=== PATIENT | female | born 2000 | race Caucasian/White ===

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

== ENCOUNTER 2022-06-17 08:52 | Emergency (ER) | payer BC, SELFPAY ==
--- NOTE | 2022-06-17 08:43 | ECG_ITS ---
APPROVED REPORT Exam: Resting ECG HR:84 bpm ECG Measurements Heart Rate 84 AXES NV 151 P 52 QRSd 73 QRS 64 QT 345 T 17 QTc 386 Conclusion SINUS RHYTHM NONSPECIFIC T-WAVE ABNORMALITY BORDERLINE ECG UNCONFIRMED REPORT Electronically signed by : Jaylen Putnam MD 06/17/2022 21:18:48
[2022-06-17 08:52] VITALS: BP 135/92; PULSE 84; RESP 16; TEMP 36.8; O2SAT 100; BMI 23.3
[2022-06-17 08:54] VITALS: BMI 23.3
--- NOTE | 2022-06-17 08:54 | HMH.EDGENADL ---
Discharge Plan Disposition Patient Disposition: Home, Self-Care Condition: Good Chief Complaint: Upper Respiratory Infection Prescriptions Prescriptions: No Action norgestimate-ethinyl estradiol [Ehd-Qv-Dmpksl] 0.18/0.215/0.25 mg-25 mcg tablet 1 tab PO DAILY Qty: 28 12RF Referrals Follow up/Referrals: Vanna Hilton PA [Primary Care Provider] - See instructions Activity Restrictions/Add. Instructions Additional Instructions/Restrictions: Tessalon pearls as needed for cough. Qohr-iyf-sgpufyw ibuprofen as needed for pain. Additional instructions for UPPER RESPIRATORY INFECTION: See your physician if not improving in 3-4 days or if worsening. Rest and drink plenty of fluids. Return immediately if you have an uncontrollable fever, difficulty breathing or shortness of breath, persistent vomiting, or inability to swallow. Clinical Impressions Clinical Impression: Upper respiratory infection, viral Discharge ED Provider: Karthik Camacho General Adult HPI General Chief complaint: Upper Respiratory Infection Stated complaint: CONGESTION Time Seen by Provider: 06/17/22 08:56 History of Present Illness HPI narrative: 2-day history of cough with sternal chest pains. No fever. No rhinorrhea. No vomiting or diarrhea. She also has a left earache. Exposure to the flu 1 week ago. Related Data Previous Rx's Medication Instructions Recorded norgestimate 0.18 mg/0.215 mg/0.25 1 tab PO DAILY #28 tabs 01/19/22 mg-ethinyl estradiol 25 mcg tablet (Cdt-Nh-Nganxo) Allergies Allergy/AdvReac Type Severity Reaction Status Date / Time amoxicillin Allergy Verified 12/29/21 09:01 Penicillins Allergy Verified 12/29/21 09:01 [facility] Social History Smoking Status: Never smoker alcohol intake: never current occupational status: other Travel in the last 8 weeks: None ROS Obtained: Yes Systems reviewed as appropriate & no additional complaints except as documented Constitutional Constitutional: Denies fever(s) ENT Ears, Nose, Mouth, and Throat: Denies nasal congestion, Denies nasal discharge and Denies post nasal drip Cardiovascular Cardiovascular: Reports chest pain Respiratory Respiratory: Denies shortness of breath, Reports cough and Reports pain with cough Gastrointestinal Gastrointestingal: Denies abdominal pain, diarrhea or vomiting Physical Exam General General appearance: alert and in no apparent distress Comment: Pulse ox 100% on room air. HR 80s. Eye Eye exam: Absent conjunctival injection ENT ENT exam: Present normal oropharynx, mucous membranes moist and TM's normal bilaterally Neck Neck exam: Present normal inspection and trachea midline; Absent meningismus or lymphadenopathy Chest Chest inspection: Present normal inspection and symmetric chest wall rise Respiratory Respiratory exam: Present normal lung sounds bilaterally; Absent respiratory distress or wheezes Cardiovascular Cardiovascular exam: Present regular rate, normal rhythm and normal heart sounds Extremities Exam Extremities exam: Present normal inspection Neurological Exam Neurological exam: Present alert and oriented X3 Psychiatric Psychiatric exam: Present normal affect and normal mood Skin Skin exam: Present warm and dry Medical Decision Making Tommy Inquiry Pt receiving controlled substance: No Vital Signs: 06/17/22 08:52 Temperature 98.2 F Temperature Source Oral Pulse Rate [Right Radial] 84 Respiratory Rate 16 Blood Pressure [Right Arm] 135/92 H Blood Pressure Mean [Right Arm] 106 Blood Pressure Source [Right Arm] Automatic Cuff Blood Pressure Position [Right Arm] Sitting 02 Sat by Pulse Oximetry 100 Oxygen Delivery Method Room Air Lab Data Lab Results 06/17/22 09:05: SARS-CoV-2 (PCR) Not detected, Influenza A Untype (PCR) Not detected, Influenza Type B (PCR) Not detected Orders (Tests/Meds): ORDERS Category Date Time Status XR chest 2V Stat Exams 06/17/22 08:55 Compl
--- NOTE | 2022-06-17 08:55 | XR_ITS ---
PROCEDURE INFORMATION: Exam: XR Chest Exam date and time: 06/17/2022 8:53 AM Age: 21 years old Clinical indication: Cough; Additional info: Cough and congestion TECHNIQUE: Imaging protocol: Radiologic exam of the chest. Views: 2 views. COMPARISON: CR KUB KUB (SINGLE VIEW) 07/09/2016 3:52 PM FINDINGS: Lungs: Unremarkable. No consolidation. Pleural spaces: Unremarkable. No pleural effusion. No pneumothorax. Heart/Mediastinum: Unremarkable. No cardiomegaly. Bones/joints: Unremarkable. IMPRESSION: No acute findings.
--- NOTE | 2022-06-17 09:01 | PC.NURSE ---
PT GOING OVER FOR CXR
[2022-06-17 09:10] LABS: Coronavirus 19, PCR Not Detected (NotDetected); Influenza A, PCR Not Detected (NotDetected); Influenza B, PCR Not Detected (NotDetected)
--- NOTE | 2022-06-17 09:13 | PC.NURSE ---
SWAB SENT TO LAB
[2022-06-17 09:30] VITALS: BP 129/83; PULSE 78; RESP 16; O2SAT 100
[2022-06-17 09:54] VITALS: BP 129/83; PULSE 87; RESP 20; TEMP 36.8; O2SAT 100
== END 2022-06-17 09:55 | disposition home or self-care (01) ==
PROVIDERS: Emergency Provider Emergency Medicine; PCP Physician Assistant
DX: J06.9 Acute upper respiratory infection, unspecified (principal)
CPT/HCPCS: 71046; 93005; 99283; C9803; U0003; U0005

== ENCOUNTER 2023-05-21 18:45 | Emergency (ER) | payer BC, SELFPAY ==
[2023-05-21 19:00] VITALS: BP 148/78; PULSE 93; RESP 18; TEMP 36.9; O2SAT 99; BMI 29.9
--- NOTE | 2023-05-21 19:03 | EXP.UTC ---
Discharge Plan Disposition Patient Disposition: Home, Self-Care Condition: Good Prescriptions Prescriptions: New azithromycin [Zithromax] 250 mg tablet 250 mg PO UD DOSE PK Qty: 6 0RF Rx Instructions: Take two (2) tablets today, then one (1) tablet days #2 thru #5 prednisone [prednisone] 20 mg tablet 20 mg PO BID 3 Days Qty: 6 0RF hcuqundlypulszu-plwfklrte-FW [Bromfed DM] 2-30-10 mg/5 mL Syrup 5 ml PO Q6H PRN (Reason: Cough) Qty: 240 0RF No Action sertraline 50 mg tablet 50 mg PO Referrals Follow up/Referrals: Vanna Hilton PA [Primary Care Provider] - See instructions Activity Restrictions/Add. Instructions Additional Instructions/Restrictions: Drink plenty of fluids. Take tylenol or ibuprofen for pain or fever. Take the medications as directed. Follow up with your regular doctor. GO TO THE ER FOR ANY WORSENING SYMPTOMS Clinical Impressions Clinical Impression: Sinusitis, Acute viral syndrome Stand Alone Forms Stand Alone Forms: Work/School Release Instructions Patient Instructions: Sinusitis, DI for Sinusitis Discharge ED Provider: Silviano Rendon [facility] [place] HPI General Stated complaint: stomach ache, cough, vomiting, sneezy Time Seen by Provider: 05/21/23 19:02 History of Present Illness Provider Complaint: She states that for the past 1 day she has had sinus congestion, headache, chills, cough, and n/v. Related Data Home Medications Medication Instructions Recorded Confirmed sertraline 50 mg tablet 50 mg PO 07/20/22 07/20/22 Previous Rx's Medication Instructions Recorded azithromycin 250 mg tablet 250 mg PO UD DOSE PK #6 tabs 05/21/23 (Zithromax) svaahugjhbygrsa-irbhwnzvbjnbgnq-AD 5 ml PO Q6H PRN Cough #240 mL 05/21/23 2 mg-30 mg-10 mg/5 mL oral syrup (Bromfed DM) prednisone 20 mg tablet 20 mg PO BID 3 days #6 tabs 05/21/23 Allergies Allergy/AdvReac Type Severity Reaction Status Date / Time amoxicillin Allergy Verified 05/21/23 19:30 Penicillins Allergy Verified 05/21/23 19:30 [facility] Disclaimer: The information contained in this section may have been updated after the patient was seen, as this information can be updated by other users. Surgical History Hx of brain surgery Social History Smoking Status: Never smoker alcohol intake: current substance use type: denies use current occupational status: employed Travel in the last 8 weeks: None ROS Obtained: Yes All systems reviewed & no additional complaints except as documented Constitutional Constitutional: Reports poor appetite Eyes Eyes: Reports system reviewed and no additional complaints, except as documented ENT Ears, Nose, Mouth, and Throat: Reports as per HPI Cardiovascular Cardiovascular: Reports system reviewed and no additional complaints, except as documented and Denies chest pain Respiratory Respiratory: Denies shortness of breath, Denies chest congestion, Reports cough, Denies stridor and Denies wheezing Gastrointestinal Gastrointestingal: Reports system reviewed and no additional complaints, except as documented; Denies abdominal pain, diarrhea or vomiting Musculoskeletal Musculoskeletal: Reports system reviewed and no additional complaints, except as documented and Denies arthralgias Integumentary/Breasts Skin/Breast: Reports system reviewed and no additional complaints, except as documented and Denies rash Neurologic Neurologic: Denies paresthesias Allergic/Immunologic Allergic/Immunologic: Denies wheezing Physical Exam General General appearance: alert and in no apparent distress Eye Eye exam: Present normal appearance, PERRL and EOMI ENT ENT exam: Present mucous membranes moist and normal external ear exam Expanded ENT Exam External ear exam: Present normal external inspection TM/Canal exam: Bilateral TM: erythema and bulging Nose exam:
[2023-05-21 19:22] LABS: Microscopic, Urine URINE MICROSCOPIC (MICROSCOPIC)
[2023-05-21 19:38] LABS: Appearance,Urine CLEAR (Clear); Bilirubin,Urine Negative (Negative); Blood, Urine Negative (Negative); Color,Urine YELLOW (Yellow); Glucose,Urine (UA) Negative (Negative); Ketones,Urine Negative (Negative); Leukocyte Esterase,Urine 1+ (Negative); Nitrate,Urine Negative (Negative); Protein,Urine Negative (Negative); Specific Gravity, Urine >= 1.030 (1.005-1.030); Urobilinogen,Urine 0.2 EU/dl (0.2)
[2023-05-21 19:54] LABS: Bacteria,Urine Trace /lpf
[2023-05-21 20:00] VITALS: BP 0/0; PULSE 100; RESP 18; TEMP 36.7; O2SAT 98
== END 2023-05-21 20:00 | disposition home or self-care (01) ==
PROVIDERS: Emergency Provider Nurse Practitioner Family; PCP Physician Assistant
DX: J01.90 Acute sinusitis, unspecified (principal); B34.9 Viral infection, unspecified
CPT/HCPCS: 81001; 87086; 87635; 99212; 99214; G0463

== ENCOUNTER 2023-06-26 17:39 | Emergency (ER) | payer BC, SELFPAY ==
--- NOTE | 2023-06-26 18:26 | EXP.UTC ---
Discharge Plan Disposition Patient Disposition: Home, Self-Care Condition: Good Prescriptions Prescriptions: New prednisone [prednisone] 20 mg tablet 20 mg PO BID 3 Days Qty: 6 0RF [id number]-dkbwqcwwc-DB [Bromfed DM] 2-30-10 mg/5 mL Syrup 5 ml PO Q6H PRN (Reason: Cough) Qty: 240 0RF cefdinir 300 mg capsule 300 mg PO BID Qty: 20 0RF No Action sertraline 50 mg tablet 50 mg PO DAILY Referrals Follow up/Referrals: Vanna Hilton PA [Primary Care Provider] - See instructions Activity Restrictions/Add. Instructions Additional Instructions/Restrictions: Drink plenty of fluids. Take tylenol or ibuprofen for pain or fever. Take the medications as directed. Follow up with your regular doctor. GO TO THE ER FOR ANY WORSENING SYMPTOMS Clinical Impressions Clinical Impression: Sinusitis Stand Alone Forms Stand Alone Forms: Work/School Release Instructions Patient Instructions: Sinusitis, DI for Sinusitis Discharge ED Provider: Silviano Rendon [facility] General Stated complaint: congestion, runny nose, sore throat, cough Time Seen by Provider: 06/26/23 18:26 History of Present Illness Provider Complaint: She states that for the past 2 days she has had sinus congestion and a cough. Related Data Home Medications Medication Instructions Recorded Confirmed sertraline 50 mg tablet 50 mg PO DAILY 07/20/22 06/26/23 Previous Rx's Medication Instructions Recorded evegiruzvkdcsid-vojgesstdryuvxr-WW 5 ml PO Q6H PRN Cough #240 mL 06/26/23 2 mg-30 mg-10 mg/5 mL oral syrup (Bromfed DM) cefdinir 300 mg capsule 300 mg PO BID #20 caps 06/26/23 prednisone 20 mg tablet 20 mg PO BID 3 days #6 tabs 06/26/23 Allergies Allergy/AdvReac Type Severity Reaction Status Date / Time amoxicillin Allergy Verified 06/26/23 18:44 Penicillins Allergy Verified 06/26/23 18:44 [facility] Disclaimer: The information contained in this section may have been updated after the patient was seen, as this information can be updated by other users. Surgical History Hx of brain surgery Social History Smoking Status: Never smoker alcohol intake: current substance use type: denies use current occupational status: employed Travel in the last 8 weeks: None ROS Obtained: Yes All systems reviewed & no additional complaints except as documented Constitutional Constitutional: Reports chills and Reports fever(s) Eyes Eyes: Denies eye discharge ENT Ears, Nose, Mouth, and Throat: Reports as per HPI Cardiovascular Cardiovascular: Denies chest pain Respiratory Respiratory: Denies chest congestion and Reports cough Gastrointestinal Gastrointestingal: Reports nausea; Denies abdominal pain, constipation, cramping, diarrhea or vomiting Musculoskeletal Musculoskeletal: Denies arthralgias Integumentary/Breasts Skin/Breast: Denies rash Neurologic Neurologic: Denies paresthesias Physical Exam General General appearance: alert and in no apparent distress Eye Eye exam: Present normal appearance, PERRL and EOMI ENT ENT exam: Present mucous membranes moist and normal external ear exam Expanded ENT Exam External ear exam: Present normal external inspection TM/Canal exam: Bilateral TM: erythema and bulging Nose exam: Absent sinus tenderness Nasal speculum exam: Bilateral: normal Mouth exam: Present normal external inspection; Absent drooling Teeth exam: Present normal inspection Throat exam: Present tonsillar erythema and tonsillomegaly Neck Neck exam: Present normal inspection, full ROM and trachea midline; Absent tenderness, lymphadenopathy or thyromegaly Chest Chest inspection: Present normal inspection and symmetric chest wall rise; Absent tenderness or rash Respiratory Respiratory exam: Present normal lung sounds bilaterally; Absent respiratory distress, wheezes, stridor or accessory mu
[2023-06-26 18:30] VITALS: BP 131/88; PULSE 81; RESP 18; TEMP 36.5; O2SAT 100; BMI 31.6
[2023-06-26 18:43] LABS: UTC Strep Screen (Rapid) Negative (Negative)
[2023-06-26 19:09] VITALS: BP 131/88; PULSE 81; RESP 18; TEMP 36.5; O2SAT 100
== END 2023-06-26 19:09 | disposition home or self-care (01) ==
PROVIDERS: Emergency Provider Nurse Practitioner Family; PCP Physician Assistant
DX: J01.90 Acute sinusitis, unspecified (principal); R05.9 Cough, unspecified
CPT/HCPCS: 87880; 99212; 99214; G0463

== ENCOUNTER 2023-10-29 18:14 | Emergency (ER) | payer BC, SELFPAY ==
[2023-10-29 18:20] VITALS: BP 135/77; PULSE 65; RESP 18; TEMP 37.1; O2SAT 98; BMI 33.3
--- NOTE | 2023-10-29 19:01 | ED_ITS ---
Discharge Plan Disposition Patient Disposition: Home, Self-Care Condition: Good Prescriptions Prescriptions: New azithromycin [Zithromax Z-Bradley] 250 mg tablet See Rx Instructions .ROUTE .COMPLEX 5 Days Qty: 6 0RF Rx Instructions: For 250 mg dose pack: take 500 mg today (day 1), then 250 mg for 4 days (days 2-5) benzonatate 100 mg capsule 100 mg PO TID PRN (Reason: cough) Qty: 30 0RF methylprednisolone [Medrol (Bradley)] 4 mg tablets,dose pack See Rx Instructions .Route .COMPLEX 6 Days Qty: 21 0RF Rx Instructions: taper pack; guaifenesin [Mucinex] 600 mg tablet extended release 12hr 600 mg PO BID PRN (Reason: cough) Qty: 20 0RF No Action sertraline 50 mg tablet 50 mg PO DAILY Referrals Follow up/Referrals: Vanna Hilton PA [Primary Care Provider] - See instructions Activity Restrictions/Add. Instructions Additional Instructions/Restrictions: *Monitor Temp, Over the counter Motrin or Tylenol as directed/as needed Tylenol every 4 hours and Motrin every 6 hours (as long as your family doctor has told you that you can take it) for fever or pain. and straight to ER if unable to lower temp less than 101.0 after medication given Make sure to drink plenty of fluids *Throat Lozenges? *Warm fluids like tea with honey may help to soothe the throat? *Sleep elevated *Humidifier/Vaporizer Follow up IMMEDIATELY for new or worsening symptoms or no Noticeable improvement over the next 48-72 hours. 911 for difficulty breathing or swallowing Clinical Impressions Clinical Impression: Sinusitis Instructions Patient Instructions: DI for Sinusitis, Sinusitis Discharge ED Provider: Toña Diaz [facility] HPI General Stated complaint: cough Mode of Arrival: Ambulatory Source of Information: Patient Time Seen by Provider: 10/29/23 19:01 Description of Symptoms (Recalled from Triage Doc. by RN): Pt's symptoms are cough, sneezing, and runny nose. HEENT Symptoms (Recalled from RN notes): Yes Resp Symptoms (Recalled from RN notes): No Skin Symptoms (Recalled from RN notes): No MS Symptoms (Recalled from RN notes): No Functional Status (Recalled from RN notes): n/a History of Present Illness Provider Complaint: Patient states that she hasnt felt well for the last week States that she has been having sinus congestion and pressure, cough, sneezing runny nose at times and today she was still not feeling any better so she came in to get checked Related Data Home Medications Medication Instructions Recorded Confirmed sertraline 50 mg tablet 50 mg PO DAILY 07/20/22 10/29/23 Previous Rx's Medication Instructions Recorded azithromycin 250 mg tablet See Rx Instructions PO .COMPLEX 5 10/29/23 (Zithromax Z-Bradley) days #6 tabs benzonatate 100 mg capsule 100 mg PO TID PRN cough #30 caps 10/29/23 guaifenesin 600 mg tablet, 600 mg PO BID PRN cough #20 tabs 10/29/23 extended release 12 hr (Mucinex) methylprednisolone 4 mg tablets in See Rx Instructions .Route 10/29/23 a dose pack (Medrol (Bradley)) .COMPLEX 6 days #21 tabs Allergies Allergy/AdvReac Type Severity Reaction Status Date / Time amoxicillin Allergy Verified 10/29/23 18:37 Penicillins Allergy Verified 10/29/23 18:37 Worker's Comp Is this a Worker's Comp case?: No [facility] Disclaimer: The information contained in this section may have been updated after the patient was seen, as this information can be updated by other users. Surgical History Hx of brain surgery Social History Smoking Status: Never smoker alcohol intake: current substance use type: denies use current occupational status: employed Travel in the last 8 weeks: None ROS Obtained: Yes All systems reviewed & no additional complaints except as documented and Yes Systems reviewed as appropriate & no additional complaints except as documented Constitutional Constitutional: Reports system reviewed and no additional complaints, except as documented, Reports as per HPI, Denies body ache, Denies chills, Denies fever(s) and Denies headache(s) ENT Ears, Nose, Mouth, and Throat: Reports system reviewed and no additional complaints, except as documented, Reports as per HPI, Denies headache(s), Reports nasal congestion and Reports sinus pressure Cardiovascular Cardiovascular: Reports system reviewed and no additional complaints, except as documented and Reports as per HPI Respiratory Respiratory: Reports system reviewed and no additional complaints, except as documented, Reports as per HPI and Reports cough Gastrointestinal Gastrointestingal: Reports system reviewed and no additional complaints, except as documented and as per HPI Musculoskeletal Musculoskeletal: Reports system reviewed and no additional complaints, except as documented and Reports as per HPI Integumentary/Breasts Skin/Breast: Reports system reviewed and no additional complaints, except as documented and Reports as per HPI Neurologic Neurologic: Denies headache(s) Physical Exam General General appearance: alert and in no apparent distress ENT ENT exam: Present mucous membranes moist Expanded ENT Exam Nose exam: Present sinus tenderness (reports blood tinged mucous) Respiratory Respiratory exam: Present normal lung sounds bilaterally; Absent respiratory distress or wheezes Cardiovascular Cardiovascular exam: Present regular rate, normal rhythm and normal heart sounds Neurological Exam Neurological exam: Present alert, oriented X3 and normal gait Medical Decision Making Tommy Inquiry Pt receiving controlled substance: No Tommy was queried for this patient: No Vital Signs: 10/29/23 18:20 Temperature 98.8 F Temperature Source Oral Pulse Rate [Right Radial] 65 Respiratory Rate 18 Blood Pressure [Right Arm] 135/77 Blood Pressure Mean [Right Arm] 96 Blood Pressure Source [Right Arm] Automatic Cuff Blood Pressure Position [Right Arm] Sitting 02 Sat by Pulse Oximetry 98 Oxygen Delivery Method Room Air
[2023-10-29 19:23] VITALS: BP 135/77; PULSE 65; RESP 18; TEMP 37.1; O2SAT 98
== END 2023-10-29 19:23 | disposition home or self-care (01) ==
PROVIDERS: Emergency Provider Nurse Practitioner; PCP Physician Assistant
DX: J01.90 Acute sinusitis, unspecified (principal); R05.9 Cough, unspecified; R06.7 Sneezing
CPT/HCPCS: 99212; 99214; G0463

== ENCOUNTER 2023-12-25 10:24 | Outpatient (CLI) | payer BC, SELFPAY | END 2023-12-25 23:59 | disposition home or self-care (01) | LOC: UTC.OUT 10:26 | PROVIDERS: PCP Physician Assistant; Visit Provider Nurse Practitioner | DX: Z11.1 Encounter for screening for respiratory tuberculosis (principal) | CPT/HCPCS: 86580 ==

== ENCOUNTER 2024-01-28 11:38 | Outpatient (CLI) | payer BC, SELFPAY ==
--- NOTE | 2024-01-28 11:43 | XR_ITS ---
FINAL REPORT CLINICAL HISTORY: BRONCHITIS COMPARISON: None FINDINGS: Two views of the chest were obtained. The heart size and pulmonary vascularity are within normal limits. The mediastinum is normal. There are right base opacities present, atelectasis versus pneumonia. There is no pneumothorax. The bony thorax is intact. IMPRESSION: Right base opacities are present, atelectasis versus pneumonia. Reviewed, Interpreted and Dictated by Rahul Johns III, MD Transcribed by Lynn Vizcarra Authenticated and [facility]
== END 2024-01-28 23:59 | disposition home or self-care (01) ==
LOC: RAD 11:39
PROVIDERS: PCP Physician Assistant; Visit Provider Nurse Practitioner Family
DX: J40 Bronchitis, not specified as acute or chronic (principal)
CPT/HCPCS: 71046

== ENCOUNTER 2025-03-09 18:07 | Outpatient (CLI) | payer BC, SELFPAY ==
--- OUTSIDE RECORDS SUMMARY | 2007-05-15 | XMS_ITS | Encounter Summary ---
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 Not currently in a relationship 05/30/2016 Safe in relationship? (18 and older) Not on file 05/30/2016 Safety and Environment Answer Date Stephane rded Do you have any concerns of physical abuse, sexual abuse, or neglect of your child? No 05/30/2016 Adult hurting you or family (11-18) Not on file 05/30/2016 Someone touched you in a sexual way? (11-18) Not on file 05/30/2016 Someone hurting you or family (18 and older) Not on file 05/30/2016 Historical abuse worry Not on file 6 If you have firearms in the home, are they all in locked storage AND unloaded? Not on file 05/30/2016 Comments Unknown Sex and Gender Information Value Date Recorded Sex Assigned at Not on file Legal Sex Female 5:27 AM EST Gender Identity Not on file Sexual Orientation Not on file documented as of this encounter Progress Notes * Edt, Audit [place] - 06/16/2010 3:07 PM EDT documented in this encounter Miscellaneous Notes * Orders - Edt, Audit [place] - 07/01/2011 9:21 PM EST documented in this encounter Plan of Treatment Not on file documented as of this encounter Visit Diagnoses Not on filedocumented in this encounter
--- OUTSIDE RECORDS SUMMARY | 2025-03-09 18:12 | XMS_ITS | Encounter Summary ---
Author Organization [facility] Address [address] [place] [address] Care Team Providers Care Design Technician Name Role Phone Van Acosta M.D. Primary Care Provider [phone] Encounter Details Date Type Department Care Team (Late st Contact Info) Description 01/21/2013 Abstract [facility] Division of Pediatric Neurosurgery [address] [place] [phone] Lynnette Espino, R.N. Social History Tobacco Use Types Packs/Day Years Used Date Smoking Tobacco: Never Smokeless Tobacco: Never Alcohol Use Standard Drinks/Week Comments No 0 (1 standard drink = 0.6 oz pur e alcohol) Comments Unknown Sex and Gender Information Value Date Recorded Sex Assigned at Not on file Legal Sex Female 5:27 AM EST Gender Identity Not on file Sexual Orientation Not on file documented as of this encounter Plan of Treatment Not on file documented as of this encounter Visit Diagnoses Not on filedocumented in this encounter Care Teams Design Technician Relationship Specialty Start Date End Date Van Acosta M.D. [address] [place] [address] [address] [place] [address] PCP - General 07/25/07 documented as of this encounter
--- OUTSIDE RECORDS SUMMARY | 2025-03-09 18:12 | XMS_ITS | Clinical Summary ---
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, intractable 09/27/2008 Social History Tobacco Use Types Packs/Day Years Used Date Smoking Tobacco: Never Smokeless Tobacco: Never PHQ-2 Answer Date Recorded Patient Health Questionnaire-2 Score 0 03/04/2023 PHQ-2A Answer Date Recorded Patient Health Questionnaire-2 Score 0 03/04/2023 Comments Unknown Sex and Gender Information Value Date Recorded Sex Assigned at Not on file Legal Sex Female 8:16 PM EDT Gender Identity Not on file Sexual Orientation Not on file Last Filed Vital Signs Vital Sign Reading Time Taken Comments Blood Pressure 125/82 04/10/2023 9:33 AM EDT Pulse 96 03/04/2023 10:32 AM EDT Temperature - - Respiratory Rate - - Oxygen Saturation 98% 03/04/2023 10:32 AM EDT Inhaled Oxygen Concentration - - Weight 79.8 kg (176 lb) 04/10/2023 9:33 AM EDT Height 165.1 cm (5' 5 ) 04/10/2023 9:33 AM EDT Body Mass Index 29.29 04/10/2023 9:33 AM EDT Plan of Treatment Health Maintenance Due Date Last Done Comments [facility]-HIV Screening 2002 [facility]-Hepatitis C Screening 2002 [facility]-/Child/Adol SDOH Screenings 2002 [facility]- SDOH Screenings 2020 [facility]-Adult SDOH Screenings 2020 [facility]-DTaP,Tdap,and Td Vaccines (7 - Td or Tdap) 01/02/2023 01/02/2013, 12/31/2006, 06/06/2004, Additional history exists [facility]-Pap Smear 12/01/2023 [facility]-Depression Screening 03/04/2024 03/04/2023 [id number] Vaccine ( season) 2024 05/29/2021, 05/08/2021 [facility]-Influenza Vaccine (#1) 04/19/202506/25, 08/29/2005, 07/07/2004, Additional history exists [facility]-Zoster Vaccines (1 of 2) 2052 12/31/2006, 12/07/2003 [facility]-Hepatitis B Vaccines Completed 003, 03/30/2003, 01/25/2003, Additional history exists [facility]-HIB Vaccines Completed 03/01/2004, , 06/01/2003, Additional history exists [facility]-Pneumococcal Vaccine: Pediatrics (0 to 5 Years) and At-Risk Patients (6 to 49 Years) Aged Out 03/01/2004, 12/07/2003 No longer eligibl e based on patient's age to complete this topic [facility]-IPV Vaccines Completed 12/31/2006, , 03/30/2003, Additional history exists [facility]-Varicella Vaccines Completed 12/31/2006, 2003 [facility]-Hepatitis A Vaccines Completed 01/07/2014, 12/17 HPV Vaccines Completed 02/10/2015, 02/18, 01/07/2014 [facility]-Obesity Intervention Completed 04/10/2023, 02/16 [facility]-Rotavirus Vaccines Aged Out No lo nger eligible based on patient's age to complete this topic Insurance ANTHEM Care Teams Cold Patcher Relationship Specialty Start Date End Date César Blanco PCP - General 07/04/21
--- OUTSIDE RECORDS SUMMARY | 2025-03-09 18:12 | XMS_ITS | Clinical Summary ---
Author Organization [facility] Address [address] [place] [id number] Care Team Providers Care Transliterator Name Role Phone Van Acosta M.D. 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 Partial epilepsy with impair ment of consciousness, intractable 09/27/2008 Resolved Problems Problem Noted Date Diagnosed Date Resolved Date Patient on ketogenic diet 09/23/2012 Immunizations Immunization Administration Dates Next Due Influenza Vaccine 0.5 mL - f or patients 6 months and older 05/30/2016,07/20/2011 Family History Relation Name Status Comments Father Alive Maternal Grandfather Alive Maternal Grandmother Alive Mother Alive Paternal Grandfather Alive Paternal Grandmother Alive Social History Tobacco Use Types Packs/Day Years [...] Sign Reading Time Taken Comments Blood Pressure 104/61 05/30/2016 9:31 AM EDT Pulse 76 05/30/2016 9:31 AM EDT Temperature 36.7 C (98.1 F) 01/28/2013 2:03 PM EDT Respiratory Rate 16 01/18/2013 2:45 PM EDT Oxygen Saturation 100% 01/15/2013 8:15 PM EDT Inhaled Oxygen Concentration - - Weight 70 kg (154 lb 5.2 oz) 05/30/2016 9:31 AM EDT Height 166.5 cm (5' 5.55 ) 05/30/2016 9:31 AM ED T Body Mass Index 25.25 05/30/2016 9:31 AM EDT Plan of Treatment Health Maintenance Due Date Last Done Comments MMR IMMUNIZATION (1 of 1 - Standard series) 12/01/2003 DTAP/Tdap/Td IMMUNIZATION (1 - Tdap) 2009 VARICELLA IMMUNIZATION (1 of 2 - 13+ 2-dose series) 12/01/2015 HPV IMMUNIZATION (1 - 3-dose series) 2017 MENINGOCOCCAL B VACCINE (1 o f 2 - Standard) 2018 HEPATITIS B IMMUNIZATION (1 of 3 - 19+ 3-dose series) 2021 COVID-19 Vaccine (1 - 2023-2 5 season) 2024 AMB SEASONAL FLU VACCINE (#1) 04/19/2025, 07/20/2011 HIB IMMUNIZATION Aged Out No longer e ligible based on patient's age to complete this topic IPV IMMUNIZATION Aged Out No longer e ligible based on patient's age to complete this topic MCV4 IMMUNIZATION Aged Out No longer eligible based on patient's age to complete this topic PNEUMOCOCCAL IMMUNIZATION Aged Out No longer eligible based on patient's age to complete this topic Respiratory Syncytial Virus (RSV) <20mo Aged Out No longer eligible b ased on patient's age to complete this topic Medical Devices Implanted Type Area Sap Analyst Device Identifier Shelf Expiration Date Model / Serial / Lot Screws Matrix Neuro, Self Drilling 4mm Implanted:Qty: 6 on 01/14/2013 by Steven Bell D.O. at [facility] Left: Head [id number] / NA / NA 2 Hole Straight Plate Implanted:Qty: 1 on 01/14/2013 by Steven Bell D.O. at [facility] Left: Head [id number] / NA / NA Insurance JONNA BARNEY * Guarantor: [facility] Account Type Relation to Patient Date of Phone Billing Address Research Visit [facility] [address] [place] [address] [address] [place] [id number] Care Teams Transliterator Relationship Specialty Start Date End Date Van Acosta M.D. [address] [facility] [address] [place] [id number] PCP - General 07/25/07
--- OUTSIDE RECORDS SUMMARY | 2025-03-09 18:12 | XMS_ITS | Encounter Summary ---
Author Organization [facility] Address [address] [place] [address] Care Team Providers Care Centrifuge Separator Operator Name Role Phone Van Acosta M.D. Primary Care Provider [phone] Encounter Details Date Type Department Care Team (Late st Contact Info) Description 04/08/2013 Abstract [facility] Division of Pediatric Neurosurgery [address] [place] [phone] Lynnette Espino, R.N. Social History Tobacco [...] on filedocumented in this encounter Care Teams Centrifuge Separator Operator Relationship Specialty Start Date End Date Van Acosta M.D. [address] [place] [address] [address] [place] [address] PCP - General 07/25/07 documented as of this encounter
--- NOTE | 2025-03-09 18:15 | XR_ITS ---
PROCEDURE INFORMATION: Exam: XR Right Foot Exam date and time: 03/09/2025 6:09 PM Age: 24 years old Clinical indication: Pain; Foot; Right; Additional info: R foot pain TECHNIQUE: Imaging protocol: Radiologic exam of the right foot. Views: 3 or more views. COMPARISON: CR XR ANKLE RT MIN 3V 03/09/2025 6:07 PM FINDINGS: Bones/joints: No fracture or malalignment. Moderate soft tissue swelling around the ankle with small ankle joint effusion. Soft tissues: Mild dorsal soft tissue swelling in the forefoot. No radiopaque foreign bodies or soft tissue air. IMPRESSION: 1. No osseous injuries. 2. Nonspecific soft tissue swelling around the ankle and dorsal foot. 3. Small ankle joint effusion.
--- NOTE | 2025-03-09 18:15 | XR_ITS ---
PROCEDURE INFORMATION: Exam: XR Right Ankle Exam date and time: 03/09/2025 6:07 PM Age: 24 years old Clinical indication: Pain; Ankle; Right; Additional info: R ankle pain TECHNIQUE: Imaging protocol: Radiologic exam of the right ankle. Views: 3 or more views. COMPARISON: No relevant prior studies available. FINDINGS: Bones/joints: No evidence of acute fracture or malalignment. Small ankle joint effusion. Soft tissues: Moderate soft tissue swelling around the ankle, greatest laterally. IMPRESSION: 1. No osseous injuries. 2. Moderate soft tissue swelling around the ankle, greatest laterally. 3. Small ankle joint effusion.
== END 2025-03-09 23:59 | disposition home or self-care (01) ==
LOC: RAD 18:10
PROVIDERS: PCP Physician Assistant; Visit Provider Student in an Organized Health Care Education/Training Program
DX: M25.471 Effusion, right ankle (principal); M79.89 Other specified soft tissue disorders; M25.571 Pain in right ankle and joints of right foot
CPT/HCPCS: 73610; 73630